=== PATIENT | female | born 1945 | race Caucasian/White ===

== ENCOUNTER 2021-11-20 16:07 | Inpatient (IN) | payer MEDICARE, MEDICAID ==
[2021-11-20 17:01] LABS: #Basophils 0.1 thou/uL (0.0-0.2); #Eosinphils 0.5 thou/uL (0.0-0.7); #Lymphocytes 3.1 thou/uL (1.20-3.40); #Monocytes 0.6 thou/uL (0.11-0.59); #Neutrophils 7.1 thou/uL (1.40-6.50); %Basophils 0.7 % (0.0-1.0); %Eosinophils 4.1 % (0.0-10.0); %Lymphocytes 27.4 % (21.0-51.0); %Monocytes 5.6 % (0.0-10.0); %Neutrophils 62.2 % (42.0-75.0); Hemoglobin 13.2 g/dL (12.0-16.0); Mean Corpuscular HGB CONC 31.7 g/dL (32.0-36.0); Mean Corpuscular Hemoglobin 30.7 pg (27.0-31.0); Mean Corpuscular Volume 96.7 fL (78.0-98.0); Mean Platelet Volume 5.4 fL (7.4-10.4); Platelet Count 357 thou/uL (130-400); RBC Distribution Width 11.9 % (11.5-14.5); Red Blood Cell (RBC) Count 4.29 mill/uL (4.20-5.40); White Blood Cell (WBC) Count 11.4 thou/uL (4.8-10.8)
[2021-11-20 17:24] LABS: ALT (SGPT) 8 U/L (8-55); AST (SGOT) 11 U/L (5-34); Albumin 3.6 g/dL (3.4-4.8); Alkaline Phosphatase 87 U/L (40-110); Anion Gap 11 mmol/L (10-20); BUN (Urea Nitrogen) 13 mg/dL (9.8-20.1); Bilirubin, Total 0.4 mg/dL (0.2-1.2); Calc. Creatinine Clearance 0 mL/min (70-130); Carbon Dioxide 30 mmol/L (23-31); Chloride 102 mmol/L (98-107); Globulin 3.5 g/dL (2.4-3.5); Glucose 120 mg/dL (83-110); Potassium 4.1 mmol/L (3.5-5.1); Protein, Total 7.1 g/dL (5.8-8.1); Sodium 139 mmol/L (136-145)
[2021-11-20 18:12] LABS: Bilirubin Negative (Negative); Blood, Urine Negative (Negative); Clarity Clear (Clear); Glucose, Urine (Dipstick) Normal (Negative); Ketone, Urine Negative (Negative); Leukocyte Negative Leu/uL (Negative); Nitrite Negative (Negative); Protein, Urine (Dipstick) 10 mg/dL (Neg-Trace); Specific Gravity, Urine 1.021 (1.002-1.036)
[2021-11-20 21:21] VITALS: BMI 31.6
[2021-11-20] MEDS ORDERED: Ondansetron PF 4 MG/2 ML Vial IVP PRN (21:30)
[2021-11-20] MEDS ORDERED: Ondansetron ODT 4 MG TAB SL PRN (21:30)
[2021-11-21] MEDS ORDERED: Labetalol HCl 100 MG/20 ML VIAL SLOW IVP PRN (01:17)
[2021-11-21] MEDS ORDERED: hydrALAZINE 20 MG/ML VIAL SLOW IVP PRN (01:17)
[2021-11-21] MEDS ORDERED: Melatonin 3 MG TAB PO PRN (01:25)
[2021-11-21] MEDS ORDERED: Aspirin 81 mg Enteric Coated Tablet PO SCH ×2 (01:45→10:00)
[2021-11-21] MEDS: Acetaminophen 325 MG TAB PO PRN ×2 (02:36→23:45)
[2021-11-21 05:32] LABS: #Basophils 0.1 thou/uL (0.0-0.2); #Eosinphils 0.5 thou/uL (0.0-0.7); #Lymphocytes 4.2 thou/uL (1.20-3.40); #Monocytes 0.8 thou/uL (0.11-0.59); %Basophils 0.8 % (0.0-1.0); %Eosinophils 4.1 % (0.0-10.0); %Lymphocytes 36.5 % (21.0-51.0); %Monocytes 6.8 % (0.0-10.0); %Neutrophils 51.9 % (42.0-75.0); Hemoglobin 12.9 g/dL (12.0-16.0); Mean Corpuscular HGB CONC 31.6 g/dL (32.0-36.0); Mean Corpuscular Hemoglobin 30.6 pg (27.0-31.0); Mean Corpuscular Volume 96.9 fL (78.0-98.0); Mean Platelet Volume 5.4 fL (7.4-10.4); Platelet Count 340 thou/uL (130-400); RBC Distribution Width 11.8 % (11.5-14.5); Red Blood Cell (RBC) Count 4.21 mill/uL (4.20-5.40); White Blood Cell (WBC) Count 11.5 thou/uL (4.8-10.8)
[2021-11-21 05:57] LABS: Anion Gap 11 mmol/L (10-20); BUN (Urea Nitrogen) 12 mg/dL (9.8-20.1); Calc. Creatinine Clearance 89 mL/min (70-130); Calcium 8.6 mg/dL (7.8-10.44); Carbon Dioxide 29 mmol/L (23-31); Cardiac Risk 4.6 (Less than 4.5); Chloride 104 mmol/L (98-107); Cholesterol 202 mg/dl (< 200 Desired); Glucose 123 mg/dL (83-110); HDL Cholesterol 44 mg/dL (>60 Neg Risk); LDL Cholesterol, Calculated 133 mg/dL; Potassium 4.1 mmol/L (3.5-5.1); Sodium 140 mmol/L (136-145); Triglycerides 125 mg/dL (Less than 150)
[2021-11-21] MEDS ORDERED: Propranolol HCl LA 80 MG CAP PO SCH (09:00)
[2021-11-21] MEDS ORDERED: Gabapentin 300 MG CAP PO SCH (09:00)
[2021-11-21] MEDS: Enoxaparin Sodium 40 MG/0.4 ML SYRINGE SC SCH (09:32)
[2021-11-21] MEDS: Diazepam 2 MG TAB PO SCH ×2 (09:34→20:41)
[2021-11-21 09:35] LABS: Hemoglobin A1c 5.8 % (4.0-6.0)
[2021-11-21] MEDS ORDERED: Gabapentin 100 MG CAP PO SCH (09:45)
[2021-11-21 14:45] LABS: Syphilis Antibody Nonreactive (Nonreactive); Syphilis Antibody Index 0.08 S/CO (<1.00 Non-Reactive)
[2021-11-21 17:14] LABS: Hemoglobin 13.1 g/dL (12.0-16.0)
[2021-11-21] MEDS: Gabapentin 100 MG CAP PO SCH (20:41)
[2021-11-21] MEDS ORDERED: Atorvastatin Calcium 40 MG TAB PO SCH (21:00)
[2021-11-22 00:37] LABS: Hemoglobin 13.3 g/dL (12.0-16.0)
[2021-11-22] MEDS ORDERED: Acetaminophen 325 MG TAB PO PRN (00:57)
[2021-11-22 04:47] LABS: #Basophils 0.1 thou/uL (0.0-0.2); #Eosinphils 0.5 thou/uL (0.0-0.7); #Monocytes 0.7 thou/uL (0.11-0.59); #Neutrophils 5.5 thou/uL (1.40-6.50); %Basophils 0.8 % (0.0-1.0); %Eosinophils 4.2 % (0.0-10.0); %Lymphocytes 36.9 % (21.0-51.0); %Monocytes 6.8 % (0.0-10.0); %Neutrophils 51.3 % (42.0-75.0); Mean Corpuscular HGB CONC 32.5 g/dL (32.0-36.0); Mean Corpuscular Hemoglobin 31.2 pg (27.0-31.0); Mean Corpuscular Volume 95.9 fL (78.0-98.0); Mean Platelet Volume 5.4 fL (7.4-10.4); Platelet Count 316 thou/uL (130-400); RBC Distribution Width 11.9 % (11.5-14.5); Red Blood Cell (RBC) Count 4.17 mill/uL (4.20-5.40); White Blood Cell (WBC) Count 10.8 thou/uL (4.8-10.8)
[2021-11-22 05:12] LABS: Anion Gap 11 mmol/L (10-20); BUN (Urea Nitrogen) 10 mg/dL (9.8-20.1); Calc. Creatinine Clearance 90 mL/min (70-130); Calcium 8.6 mg/dL (7.8-10.44); Carbon Dioxide 27 mmol/L (23-31); Chloride 105 mmol/L (98-107); Glucose 120 mg/dL (83-110); Potassium 3.8 mmol/L (3.5-5.1); Sodium 139 mmol/L (136-145)
[2021-11-22] MEDS: Diazepam 2 MG TAB PO SCH (08:30)
[2021-11-22] MEDS: Gabapentin 100 MG CAP PO SCH (08:31)
[2021-11-22] MEDS: Enoxaparin Sodium 40 MG/0.4 ML SYRINGE SC SCH (08:32)
[2021-11-22] MEDS ORDERED: Aspirin 81 mg Enteric Coated Tablet PO SCH (09:00)
[2021-11-22 09:18] LABS: Hemoglobin 15.4 g/dL (12.0-16.0)
[2021-11-22 11:21] LABS: Free T4 (Free Thyroxine) 0.9 ng/dL (0.70-1.48)
[2021-11-22 12:06] VITALS: TEMP 98.2
[2021-11-22 15:29] VITALS: BP 162/74
[2021-11-22 16:59] LABS: Hemoglobin 13.3 g/dL (12.0-16.0)
[2021-11-22] MEDS ORDERED: Primidone 50 MG TAB PO SCH (21:00)
[2021-11-23] MEDS ORDERED: Losartan 25 MG TAB PO SCH (09:00)
[2021-11-23] MEDS ORDERED: DULoxetine 60 MG CAP PO SCH (09:00)
[2021-11-29 13:42] LABS: Methylmalonic Acid 988 nmol/L (0-378)
== END 2021-11-22 18:10 | DRG 69 ==
LOC: ERS 16:07 → ERHOLD 18:54 → NEURO 21:11 → OBSVTOIN 11-21 15:57
PROVIDERS: ADMIT Family Medicine; ATTEND Internal Medicine
PROC: 4A10X4Z Monitoring of Central Nervous Electrical Activity, External Approach (ICD-10-PCS; principal; 2021-11-22)
DX: G45.9 Transient cerebral ischemic attack, unspecified (principal); G81.91 Hemiplegia, unspecified affecting right dominant side; I10 Essential (primary) hypertension; G62.9 Polyneuropathy, unspecified; Z66 Do not resuscitate; M54.16 Radiculopathy, lumbar region; E66.9 Obesity, unspecified; G89.29 Other chronic pain; G30.9 Alzheimer's disease, unspecified; F02.80 Dementia in other diseases classified elsewhere, unspecified severity, without behavioral disturbance, psychotic disturbance, mood disturbance, and anxiety; W19.XXXA Unspecified fall, initial encounter; R25.1 Tremor, unspecified; Z88.5 Allergy status to narcotic agent; Z79.82 Long term (current) use of aspirin; Z79.899 Other long term (current) drug therapy; Z90.49 Acquired absence of other specified parts of digestive tract; Y92.002 Bathroom of unspecified non-institutional (private) residence as the place of occurrence of the external cause; Z98.890 Other specified postprocedural states; Z68.31 Body mass index [BMI] 31.0-31.9, adult
CPT/HCPCS: 36415; 36416; 51701; 70450; 80048; 80053; 80061; 81003; 82607; 82746; 83036; 83090; 83921; 84439; 84443; 84481; 84484; 85025; 86780; 93005; 93306; 93880; 95712; 95819; 95957; 96372; G0378; J1650

== ENCOUNTER 2021-12-15 03:18 | Emergency (ER) | payer MEDICARE, MEDICAID ==
[2021-12-15] MEDS ORDERED: Acetaminophen 325 MG TAB ONE (03:40)
== END 2021-12-15 06:25 ==
LOC: ERS 03:18
DX: M79.601 Pain in right arm (principal); M79.606 Pain in leg, unspecified; I10 Essential (primary) hypertension; W19.XXXA Unspecified fall, initial encounter
CPT/HCPCS: 99283

== ENCOUNTER 2021-12-22 02:35 | Inpatient (IN) | payer MEDICARE, MEDICAID ==
[2021-12-22] MEDS ORDERED: Pantoprazole 40 MG VIAL ONE (03:06)
[2021-12-22 03:26] LABS: #Basophils 0.1 thou/uL (0.0-0.2); #Eosinphils 0.2 thou/uL (0.0-0.7); #Lymphocytes 2.9 thou/uL (1.20-3.40); #Monocytes 0.6 thou/uL (0.11-0.59); #Neutrophils 12.2 thou/uL (1.40-6.50); %Basophils 0.6 % (0.0-1.0); %Eosinophils 1.4 % (0.0-10.0); %Lymphocytes 18.1 % (21.0-51.0); %Monocytes 3.8 % (0.0-10.0); %Neutrophils 76.1 % (42.0-75.0); Hemoglobin 13.2 g/dL (12.0-16.0); Mean Corpuscular HGB CONC 33.4 g/dL (32.0-36.0); Mean Corpuscular Hemoglobin 31.9 pg (27.0-31.0); Mean Corpuscular Volume 95.4 fL (78.0-98.0); Mean Platelet Volume 5.6 fL (7.4-10.4); Platelet Count 384 thou/uL (130-400); RBC Distribution Width 11.7 % (11.5-14.5); Red Blood Cell (RBC) Count 4.12 mill/uL (4.20-5.40)
[2021-12-22 03:28] LABS: PTT 31.6 sec (22.9-36.1); Prothrombin Time 13.5 sec (12.0-14.7)
[2021-12-22 03:39] LABS: ALT (SGPT) 9 U/L (8-55); AST (SGOT) 15 U/L (5-34); Albumin 3.5 g/dL (3.4-4.8); Alkaline Phosphatase 92 U/L (40-110); Anion Gap 16 mmol/L (10-20); BUN (Urea Nitrogen) 16 mg/dL (9.8-20.1); Bilirubin, Total 0.6 mg/dL (0.2-1.2); Calc. Creatinine Clearance 0 mL/min (70-130); Calcium 8.9 mg/dL (7.8-10.44); Carbon Dioxide 24 mmol/L (23-31); Chloride 101 mmol/L (98-107); Globulin 3.9 g/dL (2.4-3.5); Glucose 191 mg/dL (83-110); Potassium 3.9 mmol/L (3.5-5.1); Protein, Total 7.4 g/dL (5.8-8.1); Sodium 137 mmol/L (136-145)
[2021-12-22] MEDS ORDERED: Ondansetron PF 4 MG/2 ML Vial IVP PRN (03:55)
[2021-12-22] MEDS ORDERED: Morphine 2 MG/ML VIAL SLOW IVP PRN (03:59)
[2021-12-22] MEDS ORDERED: hydrALAZINE 20 MG/ML VIAL SLOW IVP PRN (03:59)
[2021-12-22] MEDS ORDERED: Pantoprazole 80 MG in Sodium Chloride 0.9% 100 ML IVPB SCH (05:00)
[2021-12-22] MEDS: Sodium Chloride 0.9% 1,000 ML IV SCH ×3 (05:35→21:29)
[2021-12-22 07:28] VITALS: BMI 31.3
[2021-12-22] MEDS ORDERED: Piperacillin/Tazobactam 3.375 GM in Sodium Chloride 0.9% 100 ML IVPB SCH ×2 (07:45→12:00)
[2021-12-22 08:20] LABS: Hemoglobin 12.2 g/dL (12.0-16.0)
[2021-12-22 11:41] LABS: Hemoglobin 12.7 g/dL (12.0-16.0)
[2021-12-22 12:24] LABS: SARS-CoV-2 PCR by NAA Not Detected (NotDetected)
[2021-12-22 14:11] LABS: Hemoglobin 13.9 g/dL (12.0-16.0)
[2021-12-22 18:40] LABS: Bacteria/HPF None Seen HPF (None Seen); Bilirubin Negative (Negative); Blood, Urine Negative (Negative); Clarity Turbid (Clear); Glucose, Urine (Dipstick) Normal (Negative); Ketone, Urine Negative (Negative); Leukocyte Negative Leu/uL (Negative); Nitrite Negative (Negative); Protein, Urine (Dipstick) 10 mg/dL (Neg-Trace); RBC/HPF 0-3 HPF (0-3); Specific Gravity, Urine 1.028 (1.002-1.036); Urobilinogen Normal mg/dL (Less than 2); WBC/HPF 0-3 HPF (0-3)
[2021-12-22 18:44] LABS: Urine Culture Reflex No No
[2021-12-22] MEDS: Pantoprazole 40 MG VIAL IVP SCH (21:13)
[2021-12-23 06:49] LABS: #Basophils 0.1 thou/uL (0.0-0.2); #Eosinphils 0.6 thou/uL (0.0-0.7); #Lymphocytes 4.5 thou/uL (1.20-3.40); #Monocytes 0.7 thou/uL (0.11-0.59); #Neutrophils 5.2 thou/uL (1.40-6.50); %Basophils 1.1 % (0.0-1.0); %Eosinophils 5.3 % (0.0-10.0); %Lymphocytes 40.4 % (21.0-51.0); %Monocytes 6.2 % (0.0-10.0); Hemoglobin 13.2 g/dL (12.0-16.0); Mean Corpuscular HGB CONC 32.8 g/dL (32.0-36.0); Mean Corpuscular Hemoglobin 31.8 pg (27.0-31.0); Mean Corpuscular Volume 97.1 fL (78.0-98.0); Mean Platelet Volume 6.3 fL (7.4-10.4); Platelet Count 269 thou/uL (130-400); RBC Distribution Width 11.9 % (11.5-14.5); Red Blood Cell (RBC) Count 4.14 mill/uL (4.20-5.40); White Blood Cell (WBC) Count 11.1 thou/uL (4.8-10.8)
[2021-12-23 07:10] LABS: Anion Gap 13 mmol/L (10-20); BUN (Urea Nitrogen) 11 mg/dL (9.8-20.1); Calc. Creatinine Clearance 82 mL/min (70-130); Calcium 8.5 mg/dL (7.8-10.44); Carbon Dioxide 23 mmol/L (23-31); Chloride 108 mmol/L (98-107); Glucose 113 mg/dL (83-110); Sodium 140 mmol/L (136-145)
[2021-12-23] MEDS ORDERED: Primidone 50 MG TAB PO SCH (09:00)
[2021-12-23] MEDS ORDERED: Gabapentin 100 MG CAP PO SCH (09:00)
[2021-12-23] MEDS ORDERED: Diazepam 2 MG TAB PO SCH (09:00)
[2021-12-23] MEDS ORDERED: Propranolol HCl LA 60 MG CAP PO SCH (09:00)
[2021-12-23] MEDS: Pantoprazole 40 MG VIAL IVP SCH (09:05)
[2021-12-23 12:14] VITALS: BP 162/79; TEMP 98.2
[2021-12-23] MEDS ORDERED: Atorvastatin Calcium 40 MG TAB PO SCH (21:00)
[2021-12-23] MEDS ORDERED: OLANZapine 5 MG TAB PO SCH (21:00)
[2021-12-23] MEDS ORDERED: DULoxetine 60 MG CAP PO SCH (21:00)
[2021-12-23] MEDS ORDERED: traZODone HCl 50 MG TAB PO SCH (21:00)
[2021-12-24] MEDS ORDERED: Losartan 25 MG TAB PO SCH (09:00)
[2021-12-24] MEDS ORDERED: Aspirin 81 mg Enteric Coated Tablet PO SCH (09:00)
== END 2021-12-23 15:17 | disposition home or self-care (01) | DRG 379 ==
LOC: ERS 02:35 → 2NO 03:55 → T4-A 13:30
PROVIDERS: ADMIT Internal Medicine; ATTEND Internal Medicine
DX: K92.2 Gastrointestinal hemorrhage, unspecified (principal); I10 Essential (primary) hypertension; E78.5 Hyperlipidemia, unspecified; G62.9 Polyneuropathy, unspecified; F41.9 Anxiety disorder, unspecified; Z20.822 Contact with and (suspected) exposure to COVID-19; R10.9 Unspecified abdominal pain; G25.0 Essential tremor; G30.9 Alzheimer's disease, unspecified; F02.80 Dementia in other diseases classified elsewhere, unspecified severity, without behavioral disturbance, psychotic disturbance, mood disturbance, and anxiety; Z86.73 Personal history of transient ischemic attack (TIA), and cerebral infarction without residual deficits; Z88.5 Allergy status to narcotic agent; Z79.82 Long term (current) use of aspirin; Z79.899 Other long term (current) drug therapy; Z90.49 Acquired absence of other specified parts of digestive tract; Z98.890 Other specified postprocedural states
CPT/HCPCS: 36415; 71045; 74176; 80048; 80053; 81001; 85025; 85610; 85730; 96374; C9113; J2270; J2543; J3490; J7050; U0003; U0005